=== PATIENT | male | born 1990 | race American Indian/Alaskan Native ===

== ENCOUNTER 2017-04-03 09:28 | Emergency (ER) | payer OTHER ==
[2017-04-03 09:39] VITALS: BP 143/90
[2017-04-03] MEDS ORDERED: TRIPLE ANTIBIOTIC TP ONE (09:55)
[2017-04-03] MEDS ORDERED: BOOSTRIX IM ONE (09:55)
[2017-04-03] MEDS ORDERED: NACL 0.9% IR ONE (09:55)
[2017-04-03] MEDS ORDERED: KEFLEX PO ONE (09:55)
--- NOTE | 2017-04-03 10:20 | Emergency Department Report ---
ED Lower Extremity HPI - General Chief Complaint: Wound/Laceration Stated Complaint: LEFT HAND/LEG INJURY Time Seen by Provider: 04/03/17 09:53 Source: patient Mode of arrival: Ambulatory Limitations: No Limitations - History of Present Illness MD Complaint: other (knee and finger injury sp fall days ago) -: Sudden Injury: Knee: Right Type of Injury: blunt Place: home Severity: mild Improves With: nothing Worsens With: weight bearing Context: fall - Related Data Previous Rx's Medication Instructions Recorded Last Taken Type Cephalexin [Keflex] 500 mg PO Q12HR #20 cap 04/03/17 Unknown Rx traMADol [Ultram] 50 mg PO Q6HR PRN #12 tablet 04/03/17 Unknown Rx Allergies Allergy/AdvReac Type Severity Reaction Status Date / Time No Known Allergies Allergy Verified 04/03/17 09:58 ED Review of Systems ROS: Stated complaint: LEFT HAND/LEG INJURY Other details as noted in HPI Comment: All other systems reviewed and negative Skin: other (lac finger and r knee) ED Past Medical Hx - Past Medical History Previous Medical History?: No - Surgical History Past Surgical History?: No - Family History Family history: no significant - Social History Smoking Status: Current Every Day Smoker Substance Use Type: None - Medications Home Medications: Home Medications Medication Instructions Recorded Confirmed Last Taken Type Cephalexin [Keflex] 500 mg PO Q12HR #20 cap 04/03/17 Unknown Rx traMADol [Ultram] 50 mg PO Q6HR PRN #12 tablet 04/03/17 Unknown Rx ED Physical Exam - General Limitations: No Limitations General appearance: alert - Head Head exam: Present: atraumatic - Eye Eye exam: Present: normal appearance Pupils: Present: normal accommodation - ENT ENT exam: Present: normal exam - Neck Neck exam: Present: normal inspection - Respiratory Respiratory exam: Present: normal lung sounds bilaterally - Cardiovascular Cardiovascular Exam: Present: regular rate - GI/Abdominal GI/Abdominal exam: Present: soft - Rectal Rectal exam: Present: deferred - Extremities Exam Extremities exam: Present: normal inspection, full ROM, tenderness, normal capillary refill. Absent: pedal edema, joint swelling, calf tenderness - Expanded Upper Extremity Exam Right Neuro motor exam: Present: wrist extension intact Neurosensory exam: Present: radial nerve intact, ulnar nerve intact Vascular: Present: normal capillary refill - Expanded Lower Extremity Exam Right Knee exam: Present: full ROM, tenderness, laceration, full knee extension. Absent: swelling, abrasion, ecchymosis, deformity, crepidus, dislocation, erythema, effusion, pain w/ pronation/supination, posterior draw sign, pain/ laxity with valgus, pain/laxity with varus - Back Exam Back exam: Present: normal inspection - Neurological Exam Neurological exam: Present: oriented X3, CN II-XII intact, normal gait, reflexes normal - Psychiatric Psychiatric exam: Present: normal affect, normal mood - Skin Skin exam: Present: warm, dry, other (lac r knee and small superficial lac to r 5th finger and dip) ED Course Vital Signs 04/03/17 09:33 Temperature 98.6 F Pulse Rate 81 Respiratory 20 Rate Blood Pressure 143/90 O2 Sat by Pulse 97 Oximetry - Reevaluation(s) Reevaluation #1: to er sp fall 3 days ago glf did not want to come to er bc afraid of needles [place] small superficial lac to 5th r digit n/v intact wound cleaned larger wound r knee full rom n/v intact xray noted given 3 days old approx edges with steristrips and dermabond large bulky dresssing and marcelle to minimize movement over joint pt educated on why this can not be closed and importance of keeping the edges approx to prevent infection. crutches to min mobility dc home w anbx. vss nad - Laceration /Wound Repair finger Wound Location: upper extremity Wound Length (cm): 1 Wound's Depth, Shape: superficial, linear Wound Explored: clean Irrigated w/ Saline (ccs): 50 Betadine Prep?: Yes Number of Sutures: 0 Sterile Dressing Applied?: Yes (cleaned and dressed. no closure needed) r knee Wound Location: lower extremity Wound Length (cm): 5 Wound's Depth, Shape: linear Wound Explored: clean Irrigated w/ Saline (ccs): 100 Betadine Prep?: No Wound Repaired With: Steri-strips, Dermabond Layer Closure?: No Sterile Dressing Applied?: Yes (wound cleaned and repaired with steri trips/ demabond and large bulky dressi) ED Lower Extremity MDM - Radiology Data Radiology results: report reviewed, image reviewed - Medical Decision Making SEE NOTE - Differential Diagnosis 3 DAY OLD LAC Critical care attestation.: If time is entered above; I have spent that time in minutes in the direct care of this critically ill patient, excluding procedure time. ED Disposition Clinical Impression: Laceration Disposition: DC-01 TO HOME OR SELFCARE Is pt being admited?: No Does the pt Need Aspirin: No Condition: Stable Instructions: Laceration (ED), Soft Tissue Foreign Body (ED), Finger Laceration (ED), Skin Adhesive Care (ED) Additional Instructions: KEEP CLEAN AND DRY KEEP COVERED ICE REST ELEVATE MEDS ORDERED FOLLOW UP WITH MD - SEE BELOW- TUES IF NO BETTER MARCELLE TO REMIND YOU NOT TO MOVE THE EXTREMITY TOO MUCH WOUND CARE EVERY 24 HOURS DESCRIBED ALLOW STERI STRIPS TO FALL OFF Prescriptions: Cephalexin [Keflex] 500 mg PO Q12HR #20 cap traMADol [Ultram] 50 mg PO Q6HR PRN #12 tablet PRN Reason: Pain Referrals: PRIMARY CARE, [Primary Care Provider] - 3-5 Days AYUSH JOHNSON MD [Staff Physician] - 3-5 Days Forms: Work/School Release Form(ED) Time of Disposition: 10:52
--- NOTE | 2017-04-03 10:37 | XRay Report ---
Right knee: Trauma, laceration. There is a soft tissue laceration of the knee just anterior to the mid patella. No foreign body noted. The bones, joints, and soft tissues are otherwise unremarkable. No effusion. Impression: Soft tissue laceration.
== END 2017-04-03 11:04 | disposition home or self-care (01) ==
LOC: ED 09:28
DX: S81.011A Laceration without foreign body, right knee, initial encounter (principal); S61.216A Laceration without foreign body of right little finger without damage to nail, initial encounter; F17.200 Nicotine dependence, unspecified, uncomplicated; W17.89XA Other fall from one level to another, initial encounter; Y93.89 Activity, other specified; Y92.89 Other specified places as the place of occurrence of the external cause; Y99.8 Other external cause status
CPT/HCPCS: 90471; 90715; A6250

== ENCOUNTER 2018-10-06 18:03 | Emergency (ER) | payer OTHER ==
--- NOTE | 2018-10-06 18:09 | Emergency Department Report ---
Blank Doc - Documentation Documentation: This is a 28-year-old male that presents with nausea vomiting and diarrhea. S tated it started after eating [employer] last night. This initial assessment/diagnostic orders/clinical plan/treatment(s) is/are subject to change based on patient's health status, clinical progression and re- assessment by fellow clinical providers in the ED. Further treatment and workup at subsequent clinical providers discretion. Patient/guardians urged not to elope from the ED as their condition may be serious if not clinically assessed and managed. Initial orders include: 1- Patient sent to [facility] for further evaluation and treatment 2- labs 3- UA
[2018-10-06 18:10] VITALS: BP 163/102
[2018-10-06 18:48] LABS: Bacteria,Urine 1+ /HPF (Negative); Bilirubin,Urine NEG (Negative); Blood,Urine NEG (Negative); Color,Urine Yellow (Yellow); Mucus,Urine FEW /HPF; Protein,Urine <15 mg/dL mg/dL (Negative); Urobilinogen,Urine < 2.0 mg/dL (<2.0)
[2018-10-06 18:55] LABS: Basophils # (Auto) 0.1 K/mm3 (0.0-0.1); Basophils % (Auto) 1.6 % (0.0-1.8); Eosinophils # (Auto) 0.2 K/mm3 (0.0-0.4); Eosinophils % (Auto) 4.7 % (0.0-4.3); Hemoglobin 14.5 gm/dl (11.8-15.2); Lymphocytes # (Auto) 1.8 K/mm3 (1.2-5.4); Lymphocytes % (Auto) 35.6 % (13.4-35.0); Mean Corpuscular HGB Conc 35 % (32-34); Mean Corpuscular Volume 95 fl (84-94); Monocytes # (Auto) 0.4 K/mm3 (0.0-0.8); Monocytes % (Auto) 7.7 % (0.0-7.3); Platelet Count 192 K/mm3 (140-440); Red Blood Count 4.45 M/mm3 (3.65-5.03)
[2018-10-06 19:40] LABS: Alanine Aminotransferase 21 units/L (7-56); Albumin 4.1 g/dL (3.9-5); BUN/Creatinine Ratio 19; Blood Urea Nitrogen 13 mg/dL (9-20); Calcium 9.7 mg/dL (8.4-10.2); Hemolysis Index 78
[2018-10-06 19:44] LABS: Bilirubin,Direct < 0.2 mg/dL (0-0.2)
[2018-10-06] MEDS ORDERED: ZOFRAN ODT PO ONE (20:07)
--- NOTE | 2018-10-06 20:51 | Emergency Department Report ---
ED N/V/D HPI - General Chief complaint: Nausea/Vomiting/Diarrhea Stated complaint: ABD PAIN Time Seen by Provider: 10/06/18 18:07 Source: patient Mode of arrival: Ambulatory Limitations: No Limitations - History of Present Illness Initial comments: This is a 28-year-old male that presents with nausea vomiting and diarrhea. Stated it started after eating [employer] last night. there is no fever no chills pt states symptoms are exacerbated by po intake, symptoms are relieved by rest last diarrhea last night , last n/v this am, last po intake 10 min ago without n/v MD complaint: nausea, vomiting, diarrhea, abdominal pain (spasm ) Onset/Timin -: days(s) Description of Vomiting: food contents Description of Diarrhea: water Associated Abdominal Pain: Yes (cramping ) Location: LLQ Severity: moderate Pain Scale: 3 Quality: cramping Consistency: intermittent Improves with: rest Worsens with: eating Context: possible food poisoning Associated Symptoms: nausea/vomiting. denies: chest pain, fever/chills, headaches, malaise, rash, dysuria, shortness of breath, syncope, weakness - Related Data Previous Rx's Medication Instructions Recorded Last Taken Type cephALEXin [Keflex] 500 mg PO Q12HR #20 cap 04/03/17 Unknown Rx traMADol [Ultram] 50 mg PO Q6HR PRN #12 tablet 04/03/17 Unknown Rx Dicyclomine [Bentyl] 10 mg PO QID PRN #30 capsule 10/06/18 Unknown Rx Naproxen [Naprosyn TAB] 500 mg PO BID PRN #30 tablet 10/06/18 Unknown Rx Ondansetron [Zofran Odt] 4 mg PO Q8HR #12 tab.rapdis 10/06/18 Unknown Rx Allergies Allergy/AdvReac Type Severity Reaction Status Date / Time No Known Allergies Allergy Verified 04/03/17 09:58 ED Review of Systems ROS: Stated complaint: ABD PAIN Other details as noted in HPI Constitutional: denies: chills, fever Eyes: denies: eye pain, eye discharge, vision change ENT: denies: ear pain, throat pain Respiratory: denies: cough, shortness of breath, wheezing Cardiovascular: denies: chest pain, palpitations Endocrine: no symptoms reported Gastrointestinal: abdominal pain, nausea, diarrhea. denies: constipation, hematemesis, melena, hematochezia Genitourinary: denies: urgency, dysuria, frequency, hematuria, discharge Musculoskeletal: denies: back pain, joint swelling, arthralgia Skin: denies: rash, lesions Neurological: denies: headache, weakness, paresthesias Psychiatric: denies: anxiety, depression Hematological/Lymphatic: denies: easy bleeding, easy bruising ED Past Medical Hx - Past Medical History Previous Medical History?: No - Surgical History Past Surgical History?: No - Social History Smoking Status: Current Every Day Smoker Substance Use Type: Alcohol - Medications Home Medications: Home Medications Medication Instructions Recorded Confirmed Last Taken Type cephALEXin [Keflex] 500 mg PO Q12HR #20 cap 04/03/17 Unknown Rx traMADol [Ultram] 50 mg PO Q6HR PRN #12 tablet 04/03/17 Unknown Rx Dicyclomine [Bentyl] 10 mg PO QID PRN #30 capsule 10/06/18 Unknown Rx Naproxen [Naprosyn TAB] 500 mg PO BID PRN #30 tablet 10/06/18 Unknown Rx Ondansetron [Zofran Odt] 4 mg PO Q8HR #12 tab.rapdis 10/06/18 Unknown Rx ED Physical Exam - General Limitations: No Limitations General appearance: alert, in no apparent distress - Head Head exam: Present: atraumatic, normocephalic - Eye Eye exam: Present: normal appearance, PERRL, EOMI Pupils: Present: normal accommodation - ENT ENT exam: Present: normal orophraynx, mucous membranes moist, TM's normal bilaterally, normal external ear exam - Neck Neck exam: Present: normal inspection, full ROM. Absent: lymphadenopathy, thyromegaly - Respiratory Respiratory exam: Present: normal lung sounds bilaterally. Absent: respiratory distress, wheezes, stridor - Cardiovascular Cardiovascular Exam: Present: regular rate, normal rhythm, normal heart sounds. Absent: systolic murmur, diastolic murmur, rubs, gallop - GI/Abdominal GI/Abdominal exam: Present: soft, normal bowel sounds. Absent: distended, tenderness, guarding, rebound, rigid, bruit, hernia - Expanded GI/Abdominal Exam Expanded GI/Abdominal exam: Absent: psoas sign, obturator sign, heel tap sign, Rodgers's sign, Rovsing's sign, tenderness at Mcbur[place]'s Point, ascites - Rectal Rectal exam: Present: deferred - Extremities Exam Extremities exam: Present: normal inspection, full ROM, normal capillary refill. Absent: tenderness - Back Exam Back exam: Present: normal inspection, full ROM. Absent: tenderness, CVA tenderness (R), CVA tenderness (L), rash noted - Neurological Exam Neurological exam: Present: alert, oriented X3, CN II-XII intact, normal gait - Psychiatric Psychiatric exam: Present: normal affect, normal mood - Skin Skin exam: Present: warm, dry, intact, normal color. Absent: rash ED Course Vital Signs 10/06/18 18:08 Temperature 98.3 F Pulse Rate 95 H Respiratory 16 Rate Blood Pressure 163/102 O2 Sat by Pulse 99 Oximetry ED Medical Decision Making - Lab Data Result diagrams: 10/06/18 18:27 10/06/18 18:27 Labs 10/06/18 10/06/18 10/06/18 18:27 18:27 Unknown WBC 5.1 RBC 4.45 Hgb 14.5 Hct 42.0 MCV 95 H MCH 33 H MCHC 35 H RDW 13.0 L Plt Count 192 Lymph % (Auto) 35.6 H [place] % (Auto) 7.7 H Eos % (Auto) 4.7 H Baso % (Auto) 1.6 Lymph # 1.8 [place] # 0.4 Eos # 0.2 Baso # 0.1 Seg Neutrophils % 50.4 Seg Neutrophils # 2.6 Sodium 145 Potassium 3.9 Chloride 104.2 Carbon Dioxide 27 Anion Gap 18 BUN 13 Creatinine 0.7 L Estimated GFR > 60 BUN/Creatinine Ratio 19 Glucose 89 Calcium 9.7 Total Bilirubin 0.20 Direct Bilirubin < 0.2 AST 24 ALT 21 Alkaline Phosphatase 51 Total Protein 7.3 Albumin 4.1 Albumin/Globulin Ratio 1.3 Lipase 27 Urine Color Yellow Urine Turbidity Clear Urine pH 6.0 Ur Specific [place] 1.023 Urine Protein <15 mg/dl Urine Glucose (UA) Neg Urine Ketones Neg Urine Blood Neg Urine Nitrite Neg Urine Bilirubin Neg Urine Urobilinogen < 2.0 Ur Leukocyte Esterase Neg Urine WBC (Auto) 4.0 Urine RBC (Auto) 4.0 U Epithel Cells (Auto) < 1.0 Urine Bacteria (Auto) 1+ Urine Mucus Few - Medical Decision Making labs normal abd pain is relieved pt is now tolerating po intake without n/v pt declines imaging or ivfs. plan, dc to home continue to hydrate, zofran, bentyl, naproxen follow up pcp in 2-3 days return to ed if symptoms worsen. Critical care attestation.: If time is entered above; I have spent that time in minutes in the direct care of this critically ill patient, excluding procedure time. ED Disposition Clinical Impression: Nausea vomiting and diarrhea Disposition: DC-01 TO HOME OR SELFCARE Is pt being admited?: No Does the pt Need Aspirin: No Condition: Stable Instructions: Acute Nausea and Vomiting (ED), Abdominal Pain (ED) Prescriptions: Dicyclomine [Bentyl] 10 mg PO QID PRN #30 capsule PRN Reason: abdominal spasm Naproxen [Naprosyn TAB] 500 mg PO BID PRN #30 tablet PRN Reason: Pain , Severe (7-10) Ondansetron [Zofran Odt] 4 mg PO Q8HR #12 tab.rapdis Referrals: [facility] [Outside] - 3-5 Days Forms: Work/School Release Form(ED) Time of Disposition: 20:58
== END 2018-10-06 21:00 | disposition home or self-care (01) ==
LOC: ED 18:03
DX: R11.2 Nausea with vomiting, unspecified (principal); R19.7 Diarrhea, unspecified; F17.200 Nicotine dependence, unspecified, uncomplicated
CPT/HCPCS: 36415; 80048; 80076; 81001; 83690; 85025; Q0162